=== PATIENT | male | born 1995 | race Caucasian/White ===

== ENCOUNTER 2017-05-10 02:05 | Emergency (ER) | payer BC, OTHER ==
[2017-05-10 02:24] VITALS: BP 110/78; PULSE 89; TEMP 97.4
--- NOTE | 2017-05-10 03:51 | CT ---
EXAM: CT Maxillofacial Without Intravenous Contrast CLINICAL HISTORY: Reason: Pain TECHNIQUE: Axial computed tomography images of the face without intravenous contrast. CTDI is 30.6 mGy and DLP is 630.3 mGy-cm. This CT exam was performed using one or more of the following dose reduction techniques: automated exposure control, adjustment of the mA and/or kV according to patient size, and/or use of iterative reconstruction technique. COMPARISON: No relevant prior studies available. FINDINGS: Bones/joints: No acute fracture. Soft tissues: Facial soft tissue swelling. Orbits: Unremarkable. Sinuses: Unremarkable. No air-fluid levels. IMPRESSION: No evidence of acute fracture. Facial soft tissue swelling.
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
--- NOTE | 2017-05-10 04:08 | CT ---
EXAM: CT Head Without Intravenous Contrast CLINICAL HISTORY: Reason: Pain TECHNIQUE: Axial computed tomography images of the head/brain without intravenous contrast. CTDI is 57.4 mGy and DLP is 1167.7 mGy-cm. This CT exam was performed using one or more of the following dose reduction techniques: automated exposure control, adjustment of the mA and/or kV according to patient size, and/or use of iterative reconstruction technique. COMPARISON: No relevant prior studies available. FINDINGS: Brain: No hemorrhage. No acute cortical infarct. No mass effect or midline shift. Ventricles: Unremarkable. Bones/joints: No acute fracture. Soft tissues: Scalp soft tissue swelling. Sinuses: Unremarkable as visualized. Mastoid air cells: Unremarkable as visualized. IMPRESSION: No intracranial hemorrhage or skull fracture. Scalp soft tissue swelling. EXAM: CT Cervical Spine Without Intravenous Contrast CLINICAL HISTORY: Reason: Pain TECHNIQUE: Axial computed tomography images of the cervical spine without intravenous contrast. CTDI is 19.7 mGy and DLP is 484.4 mGy-cm. This CT exam was performed using one or more of the following dose reduction techniques: automated exposure control, adjustment of the mA and/or kV according to patient size, and/or use of iterative reconstruction technique. COMPARISON: No relevant prior studies available. FINDINGS: Vertebrae: No acute fracture. No subluxation. Discs/spinal canal/neural foramina: No critical spinal canal stenosis. Soft tissues: Unremarkable. Lung apices: Unremarkable as visualized. IMPRESSION: No acute fracture.
[2017-05-10 04:20] VITALS: RESP 15
== END 2017-05-10 04:47 | disposition left against medical advice (07) ==
LOC: EC 02:05
DX: S01.511A Laceration without foreign body of lip, initial encounter (principal); S00.12XA Contusion of left eyelid and periocular area, initial encounter; F10.120 Alcohol abuse with intoxication, uncomplicated; F17.200 Nicotine dependence, unspecified, uncomplicated; Y09 Assault by unspecified means; Y92.89 Other specified places as the place of occurrence of the external cause
CPT/HCPCS: 12011; 70450; 70486; 72125; 99284

== ENCOUNTER 2019-04-13 02:29 | Emergency (ER) | payer BC, OTHER ==
[2019-04-13 02:35] VITALS: BP 127/81; PULSE 113; RESP 16; TEMP 97.6
[2019-04-13] MEDS ORDERED: SODIUM CHLORIDE 0.9% 1,000 ML IV STA (02:55)
[2019-04-13] MEDS ORDERED: LORazepam 2 MG/ML INJ IV STA (02:58)
--- NOTE | 2019-04-13 03:05 | ED ---
Alcohol HPI - General Chief Complaint: Alcohol Stated Complaint: abd pain,vomiting Time Seen by Provider: 04/13/19 02:40 Source: patient, family Mode of arrival: ambulatory Limitations: no limitations - History of Present Illness Last Drink: just [employer] -: hour(s) Recent Trauma: No Associated Symptoms: nausea, vomiting, abdominal pain Treatments Prior to Arrival: none - Related Data Home Medications Medication Instructions Recorded Confirmed No Known Home Medications 05/10/17 05/10/17 Allergies Allergy/AdvReac Type Severity Reaction Status Date / Time No Known Allergies Allergy Verified 04/13/19 02:35 Review of Systems ROS Statement: Those systems with pertinent positive or pertinent negative responses have been documented in the HPI. ROS Other: All systems not noted in ROS Statement are negative. Constitutional: Denies: fever, chills Respiratory: Denies: cough, dyspnea Cardiovascular: Denies: chest pain, palpitations Gastrointestinal: Reports: abdominal pain, nausea, vomiting. Denies: diarrhea, constipation, melena, hematochezia Genitourinary: Denies: dysuria, hematuria Musculoskeletal: Denies: back pain Skin: Denies: rash Neurological: Denies: headache, weakness, numbness Past Medical History Past Medical History: No Reported History History of Any Multi-Drug Resistant Organisms: None Reported Past Surgical History: No Surgical Hx Reported Past Psychological History: No Psychological Hx Reported Smoking Status: Current every day smoker Past Alcohol Use History: Abuse, Heavy Past Drug Use History: Marijuana General Exam Limitations: no limitations General appearance: alert, in no apparent distress Head exam: Present: atraumatic, normocephalic Eye exam: Present: normal appearance. Absent: scleral icterus, conjunctival injection ENT exam: Present: normal oropharynx Neck exam: Present: normal inspection Respiratory exam: Present: normal lung sounds bilaterally. Absent: respiratory distress, wheezes, rales, rhonchi, stridor Cardiovascular Exam: Present: regular rate, normal rhythm, normal heart sounds. Absent: systolic murmur, diastolic murmur, rubs, gallop GI/Abdominal exam: Present: soft. Absent: distended, tenderness, guarding, rebound, rigid, mass, pulsatile mass, hernia Extremities exam: Present: normal inspection, normal capillary refill. Absent: pedal edema, calf tenderness Back exam: Present: normal inspection. Absent: CVA tenderness (R), CVA tenderness (L) Neurological exam: Present: alert Skin exam: Present: warm, dry, intact, normal color. Absent: rash Course Vital Signs 04/13/19 02:32 Temperature 97.6 F Pulse Rate 113 H Respiratory 16 Rate Blood Pressure 127/81 O2 Sat by Pulse 95 Oximetry Medical Decision Making - Medical Decision Making This patient is 24-year-old man who presented to be evaluated for upper abdominal pain. Pain had come on after episode of drinking. Patient states that while he was waiting to be seen nor of the symptoms have improved. The exam does not show any concerning findings. Discussed further care and follow- up as well as return parameters. Disposition Clinical Impression: Abdominal pain Disposition: HOME SELF-CARE Condition: Good Instructions (If sedation given, give patient instructions): Abdominal Pain (ED) Is patient prescribed a controlled substance at d/c from ED?: No Referrals: None,Stated [Primary Care Provider] - 1-2 days
== END 2019-04-13 03:31 | disposition home or self-care (01) ==
LOC: EC 02:29
DX: R10.10 Upper abdominal pain, unspecified (principal); R11.2 Nausea with vomiting, unspecified; F17.200 Nicotine dependence, unspecified, uncomplicated
CPT/HCPCS: 99283